=== PATIENT | female | born 1980 | race Caucasian/White ===

== ENCOUNTER 2018-10-27 17:42 | Emergency (ER) | payer OTHER ==
[~2018-10-27] VITALS: Ht 170.2 cm; Wt 56.2 kg
[~2018-10-27 17:42] MED LIST: ASPIRIN325 PO; BENTYL 20 MG TA20 M1 PO; BENTYL20 MG PO; CELEXA20 MG PO; CLONAZEPAM 1 MG1 M1 PO; FLEXERIL PO; HYDROCODONE-AP1 EAC6 PO; IBUPROFEN 800800 M1 PO; KLONOPIN1 MG PO; MEDROL4 MG; NAPROSYN500 MG PO; NORFLEX100 MG PO; PEPCID20 MG PO; PERCOCET PO; PHENERGAN 25 MG25 M1 PO; PROMS25 WY RECTAL; SKELAXIN 800 M800 M1 PO; TRAMADOL 50 MG50 MG PO; VISTARIL 25 MG25 M1 PO
[2018-10-27 18:19] LABS: ABSOLUTE EOSINOPHILS 0.1 thou/uL (0.0-0.7); ABSOLUTE LYMPHOCYTES 1.7 thou/uL (0.8-5.3); ABSOLUTE MONOCYTES 0.5 thou/uL (0.0-1.2); ABSOLUTE NEUTROPHILS 5.7 thou/uL (1.6-8.1); BASOPHILS 0.2 %; EOSINOPHILS 0.7 %; HEMATOCRIT 43.2 % (37.0-47.0); HEMOGLOBIN 15.2 gm/dL (12.0-15.0); LYMPHOCYTES 21.1 %; MCH 30.6 pg (26.0-34.0); MCHC 35.3 g/dL (28.0-37.0); MCV 86.6 fL (80.0-100.0); MONOCYTES 6.8 %; NUCLEATED RBCS 0 /100WBC; PLATELET COUNT* 289 thou/uL (150-400); POLYS 71.2 %; RBC 4.99 mil/uL (4.20-5.00)
[2018-10-27 18:26] LABS: CALCIUM 9.3 mg/dL (8.5-10.1); CREATININE 0.8 mg/dL (0.6-1.3); POTASSIUM 3.9 mmol/L (3.5-5.1)
[2018-10-27 18:30] LABS: ALBUMIN 4.3 g/dL (3.4-5.0); TOTAL BILIRUBIN 1.4 mg/dL (<0.1-1.0); TOTAL PROTEIN 7.9 g/dL (6.4-8.2)
[2018-10-27 18:55] LABS: URINE BLOOD 2+ (Negative); URINE CLARITY SL CLOUDY; URINE COLOR YELLOW; URINE GLUCOSE-RANDOM NEGATIVE (Negative); URINE LEUKOCYTES-REFLEX NEGATIVE (Negative); URINE NITRITE-REFLEX NEGATIVE (Negative); URINE PROTEIN NEGATIVE (Negative); URINE SPECIFIC GRAVITY 1.025 (1.005-1.030)
[2018-10-27 19:01] LABS: ICTOTEST (BILI CONFIRMATORY) Negative (Negative); URINE BILIRUBIN 1+ (Negative); URINE KETONES 3+ (Negative)
[2018-10-27 19:10] LABS: MUCUS >6 Heavy strn/LPF (None Seen); SQUAMOUS >10 Many /LPF (0-3)
[2018-10-27 19:11] LABS: CASTS None Seen /LPF (None Seen); CRYSTALS None Seen /LPF (None Seen); URINE RBC 3-10 Few /HPF (0-2); URINE WBC-REFLEX 0-5 Rare /HPF (0-5)
[2018-10-27] MEDS ORDERED: PHENERGAN 25 MG25 MG PO (20:29)
[2018-10-27] MEDS ORDERED: ZOFRAN4 MG PO (20:29)
[2018-10-27 21:10] VITALS: BP 104/61
--- NOTE | 2018-10-28 18:45 | EKG ---
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 : 1980 Requested By: Kayla Melgar Order Number: [id number] MD: Christian Grady Measurements Intervals [place] Rate: 68 P: 73 MT: 116 QRS: 80 QRSD: 92 T: 61 QT: 424 QTc: 451 Interpretive Statements Sinus rhythm Borderline short MT interval Possible left atrial enlargement Baseline wander in lead(s) V2 Compared to ECG 09/08/2017 11:08:56 No significant changes Electronically Signed On 10-28-2018 18:45:08 [employer]UMENTATION [employer]OL[employer] 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
== END 2018-10-27 21:11 | disposition home or self-care (01) ==
LOC: M.ERS 17:42
PROVIDERS: Nurse Practitioner Family
DX: R11.2 Nausea with vomiting, unspecified (principal); R10.11 Right upper quadrant pain; R10.13 Epigastric pain; F32.9 Major depressive disorder, single episode, unspecified; F17.210 Nicotine dependence, cigarettes, uncomplicated; Z98.890 Other specified postprocedural states; Z90.711 Acquired absence of uterus with remaining cervical stump

== ENCOUNTER 2019-10-31 16:12 | Emergency (ER) | payer OTHER ==
[~2019-10-31] VITALS: Ht 170.2 cm; Wt 59.9 kg
[~2019-10-31 16:12] MED LIST changes: +PHENERGAN 25 MG25 MG PO; +ZOFRAN4 MG PO
[2019-10-31] MEDS ORDERED: IRON160 M1 PO (16:26)
[2019-10-31] MEDS ORDERED: KEFLEX250 M1 PO (16:26)
[2019-10-31] MEDS ORDERED: ZOLOFT100 MG PO (16:26)
[2019-10-31] MEDS ORDERED: KLONOPIN1 MG PO (16:26)
[2019-10-31] MEDS ORDERED: IBUPROFEN 600600 M1 PO (17:19)
[2019-10-31] MEDS ORDERED: ZANAFLEX4 MG PO (17:19)
[2019-10-31 18:21] VITALS: BP 107/63
== END 2019-10-31 18:23 | disposition home or self-care (01) ==
LOC: M.ERS 16:12
DX: S06.0X0A Concussion without loss of consciousness, initial encounter (principal); S16.1XXA Strain of muscle, fascia and tendon at neck level, initial encounter; S00.83XA Contusion of other part of head, initial encounter; F17.210 Nicotine dependence, cigarettes, uncomplicated; Z90.710 Acquired absence of both cervix and uterus; Z98.890 Other specified postprocedural states; Y08.89XA Assault by other specified means, initial encounter; Y93.89 Activity, other specified; Y92.89 Other specified places as the place of occurrence of the external cause; Y99.8 Other external cause status

== ENCOUNTER 2019-12-01 17:44 | Emergency (ER) | payer BC, OTHER ==
[~2019-12-01] VITALS: Ht 170.2 cm; Wt 59.0 kg
[~2019-12-01 17:44] MED LIST changes: +IBUPROFEN 600600 M1 PO; +IRON160 M1 PO; +KEFLEX250 M1 PO; +ZANAFLEX4 MG PO; +ZOLOFT100 MG PO
[2019-12-01 17:57] VITALS: BP 126/85
[2019-12-01] MEDS ORDERED: TRAMADOL 50 MG50 MG PO (18:02)
[2019-12-01] MEDS ORDERED: NORCO 5-325 TA1 EAC1 PO (18:53)
== END 2019-12-01 19:00 | disposition home or self-care (01) ==
LOC: M.ERS 17:44
DX: S20.211A Contusion of right front wall of thorax, initial encounter (principal); F17.210 Nicotine dependence, cigarettes, uncomplicated; Z90.710 Acquired absence of both cervix and uterus; Z98.890 Other specified postprocedural states; Y08.89XA Assault by other specified means, initial encounter; Y93.89 Activity, other specified; Y92.89 Other specified places as the place of occurrence of the external cause; Y99.8 Other external cause status

== ENCOUNTER 2020-04-10 13:49 | Emergency (ER) | payer BC ==
[~2020-04-10] VITALS: Ht 170.2 cm; Wt 59.4 kg
[~2020-04-10 13:49] MED LIST changes: +NORCO 5-325 TA1 EAC1 PO; +ZANAFLEX4 M1 PO
[2020-04-10] MEDS ORDERED: NORCO 5-325 TA1 EAC1 PO (15:43)
[2020-04-10 15:58] VITALS: BP 141/70
== END 2020-04-10 15:59 | disposition home or self-care (01) ==
LOC: M.ERS 13:49
DX: M25.532 Pain in left wrist (principal); F17.210 Nicotine dependence, cigarettes, uncomplicated; Z88.8 Allergy status to other drugs, medicaments and biological substances; Z88.1 Allergy status to other antibiotic agents; Z88.6 Allergy status to analgesic agent; Z79.899 Other long term (current) drug therapy; Z98.890 Other specified postprocedural states; Z90.710 Acquired absence of both cervix and uterus; W20.8XXA Other cause of strike by thrown, projected or falling object, initial encounter; Y93.89 Activity, other specified; Y92.099 Unspecified place in other non-institutional residence as the place of occurrence of the external cause; Y99.9 Unspecified external cause status

== ENCOUNTER 2021-08-08 10:23 | Emergency (ER) | payer OTHER, MEDICAID ==
[~2021-08-08] VITALS: Ht 170.2 cm; Wt 61.2 kg
[2021-08-08 11:01] LABS: URINE BILIRUBIN NEGATIVE (Negative); URINE BLOOD 1+ (Negative); URINE CLARITY CLEAR; URINE COLOR YELLOW; URINE GLUCOSE-RANDOM NEGATIVE (Negative); URINE KETONES NEGATIVE (Negative); URINE LEUKOCYTES-REFLEX NEGATIVE (Negative); URINE NITRITE-REFLEX NEGATIVE (Negative); URINE PROTEIN NEGATIVE (Negative); URINE UROBILINOGEN 0.2 E.U./dl (0.2-1.0)
[2021-08-08 11:10] LABS: BACTERIA-REFLEX None Seen /HPF (None Seen); CASTS None Seen /LPF (None Seen); MUCUS None Seen strn/LPF (None Seen); SQUAMOUS 0-3 Few /LPF (0-3); URINE RBC 3-10 Few /HPF (0-2); URINE WBC-REFLEX 0-5 Rare /HPF (0-5)
[2021-08-08 11:11] LABS: CRYSTALS None Seen /LPF (None Seen)
[2021-08-08] MEDS ORDERED: MOBIC7.5 MG PO (12:29)
[2021-08-08] MEDS ORDERED: MEDROLDOSEPACK PO (12:29)
[2021-08-08 12:36] VITALS: BP 141/95
== END 2021-08-08 12:37 | disposition home or self-care (01) ==
LOC: M.ERS 10:23
PROVIDERS: Nurse Practitioner Family
DX: S39.012A Strain of muscle, fascia and tendon of lower back, initial encounter (principal); M53.3 Sacrococcygeal disorders, not elsewhere classified; M54.41 Lumbago with sciatica, right side; F32.9 Major depressive disorder, single episode, unspecified; F17.210 Nicotine dependence, cigarettes, uncomplicated; Z98.890 Other specified postprocedural states; Z90.711 Acquired absence of uterus with remaining cervical stump; Z79.899 Other long term (current) drug therapy; Z88.8 Allergy status to other drugs, medicaments and biological substances; Z88.1 Allergy status to other antibiotic agents; W10.8XXA Fall (on) (from) other stairs and steps, initial encounter; Y93.89 Activity, other specified; Y92.89 Other specified places as the place of occurrence of the external cause; Y99.8 Other external cause status